=== PATIENT | male | born 1995 | race African-American/Black ===

== ENCOUNTER 2018-11-26 07:16 | Emergency (ER) | payer OTHER ==
[2018-11-26 07:51] LABS: Absolute Lymphocytes (CBC) 1.9 K/uL (0.7-4.9); Absolute Monocytes 0.5 K/uL (0.1-1.3); Absolute Neutrophil 1.6 K/uL (1.8-8.0); Basophils % 0.4 % (0-1.3); Eosinophils % 2.2 % (0-4.4); Hematocrit 49.8 % (39.6-49.0); Lymphocytes % 47.2 % (15.3-44.8); Monocytes % 12.2 % (3.3-12.3); RBC Red Blood Cell Count 5.48 M/uL (4.33-5.43)
[2018-11-26 08:03] LABS: BUN Blood Urea Nitrogen 18 mg/dL (7-18); Bicarbonate 30 mmol/L (21-32); CKMB Creatine Kinase MB < 1.0 ng/mL (0.3-3.6); Creatine Phosphokinase 96 U/L (39-308); Glucose Level 78 mg/dL (74-106); Potassium 3.9 mmol/L (3.5-5.1); Sodium Level 140 mmol/L (136-145); Troponin (Emerg Dept Use Only) < 0.02 ng/mL (0.0-0.045)
--- NOTE | 2018-11-26 08:11 | RAD REPORT ---
EXAM DESCRIPTION: CT - [id number] - 11/26/2018 7:45 am CLINICAL HISTORY: Trauma, head and neck injury. syncope COMPARISON: No comparisons TECHNIQUE: Axial 5 mm thick images of the head were obtained. Axial 2 mm thick images of the cervical spine were obtained with sagittal and coronal reconstruction images generated and reviewed. All CT scans are performed using dose optimization technique as appropriate and may include automated exposure control or mA/KV adjustment according to patient size. FINDINGS: CT HEAD WITHOUT CONTRAST: No acute hemorrhage, hydrocephalus or extra-axial collection is identified.No areas of brain edema or midline shift. The paranasal sinuses and mastoids are clear.The calvarium is intact. CT CERVICAL SPINE WITHOUT CONTRAST: No fracture or subluxation.No prevertebral soft tissues swelling is identified. IMPRESSION: No acute intracranial or cervical spine findings.
[2018-11-26] MEDS ORDERED: NA CHLORIDE 0.9% 1,000 ML ONE (08:19)
--- NOTE | 2018-11-26 08:39 | ER ---
Nurse's Notes [facility] Name: Ryan George Age: 22 yrs Sex: Male : 1995 Arrival Date: 11/26/2018 Time: 07:18 Bed 20 Private MD: Diagnosis: Syncope and collapse Presentation: 11/26 07:12 Presenting complaint: EMS states: pt standing at work, then had a syncopal episode from tw2 standing position, on the monitor his HR dropped down to the 40's, we noted abnormalities in St, no med hx, no medication, blood sugar was 85. Transition of care: patient was not received from another setting of care. Onset of symptoms was November 26, 2018. Risk Assessment: Do you want to hurt yourself or someone else? Patient reports no desire to harm self or others. Initial Sepsis Screen: Does the patient meet any 2 criteria? No. Patient's initial sepsis screen is negative. Does the patient have a suspected source of infection? No. Patient's initial sepsis screen is negative. Care prior to arrival: IV initiated. 18 GA, in the right antecubital area, Glucose check: 85. 07:12 Method Of Arrival: EMS: [facility] tw2 07:12 Acuity: AMOS 3 tw2 Historical: - Allergies: 07:23 No Known Allergies; tw2 - Home Meds: 07:23 None [Active]; tw2 - PMHx: 07:23 None; tw2 - PSHx: 07:23 None; tw2 - Immunization history:: Adult Immunizations. - Social history:: Smoking status: . - Ebola Screening: : Patient denies exposure to infectious person Patient denies travel to an Ebola-affected area in the 21 days before illness onset. Screenin:56 Abuse screen: Denies threats or abuse. Nutritional screening: No deficits noted. tw2 Tuberculosis screening: No symptoms or risk factors identified. Fall Risk None identified. Assessment: 07:55 General: Appears in no apparent distress. slender, Behavior is calm, cooperative, tw2 appropriate for age. Pain: Denies pain. Neuro: Level of Consciousness is awake, alert, obeys commands, Oriented to person, place, time, situation. Cardiovascular: Heart tones S1 S2 Patient's skin is warm and dry. Respiratory: Airway is patent Respiratory effort is even, unlabored, Respiratory pattern is regular, symmetrical, Breath sounds are clear bilaterally. GI: No signs and/or symptoms were reported involving the gastrointestinal system. Abdomen is flat, Bowel sounds present X 4 quads. : No signs and/or symptoms were reported regarding the genitourinary system. EENT: No signs and/or symptoms were reported regarding the EENT system. Derm: No signs and/or symptoms reported regarding the dermatologic system. Musculoskeletal: Circulation, motion, and sensation intact. Capillary refill < 3 seconds, Range of motion:. 07:55 Neuro: Denies blurred vision dizziness, headache photophobia. tw2 08:06 Reassessment: Patient appears in no apparent distress at this time. No changes from tw2 previously documented assessment. Patient and/or family updated on plan of care and expected duration. Pain level reassessed. Patient is alert, oriented x 3, equal unlabored respirations, skin warm/dry/pink. 09:09 Reassessment: Patient appears in no apparent distress at this time. No changes from tw2 previously documented assessment. Patient and/or family updated on plan of care and expected duration. Pain level reassessed. Patient is alert, oriented x 3, equal unlabored respirations, skin warm/dry/pink. Vital Signs: 07:22 BP 115 / 82; Pulse 76; Resp 13; Temp 97.9(O); Pulse Ox 100% on R/A; Weight 65.77 kg; tw2 Height 6 ft. 1 in. (185.42 cm); Pain 0/10; 07:25 BP 112 / 72 Supine; Pulse 77; tw2 07:25 BP 114 / 92 Sitting; Pulse 67; tw2 07:25 BP 101 / 71 Standing; Pulse 76; tw2 08:05 BP 137 / 87; Pulse 70; Resp 17; Pulse Ox 96% on R/A; tw2 09:08 BP 116 / 79; Pulse 72; Resp 17; Pulse Ox 99% on R/A; tw2 07:22 Body Mass Index 19.13 (65.77 kg, 185.42 cm) tw2 ED Course: 07:15 Bed in low position. Call light in reach. lunchroom monitor on. Pulse ox on. NIBP on. tw2 07:18 Patient arrived in ED. kb 07:18 Teri Garrett FNP-C [facility]. kb 07:18 German Cage MD is Attending Physician. kb 07:20 Preeti Escalera, RN is Primary Nurse. tw2 07:22 Triage completed. tw2 07:23 Arm band placed on. tw2 07:30 Inserted saline lock: 20 gauge in left antecubital area, using aseptic technique. Blood tw2 collected. 07:44 CT completed. Patient tolerated procedure well. Patient moved to CT via wheelchair. Patient moved back from CT. 07:45 CT Head C Spine In Process Unspecified. EDMS 08:39 Awaiting: completion of IV fluids PRIOR to discharge. tw2 08:43 EKG done, by furniture repair technician. reviewed by Teri OBRIEN. at1 09:09 No provider procedures requiring assistance completed. IV discontinued, intact, tw2 bleeding controlled, No redness/swelling at site. Pressure dressing applied. Administered Medications: 08:11 Drug: NS 0.9% 1000 ml Route: IV; Rate: 1000 ml; Site: left antecubital; tw2 09:08 Follow up: Response: No adverse reaction; IV Status: Completed infusion; IV Intake: tw2 1000ml Intake: 09:08 IV: 1000ml; Total: 1000ml. tw2 Outcome: 08:39 Discharge ordered by MD. kb 09:09 Discharged to home ambulatory, with family. tw2 09:09 Condition: stable 09:09 Discharge instructions given to patient, family, Instructed on discharge instructions, follow up and referral plans. Demonstrated understanding of instructions, follow-up care. 09:09 Patient left the ED. tw2 Signatures: Dispatcher [employer] EDNE Teri Garrett FNP-C FNP-Ckb Jones, Susan sj Gonzales, Amanda, sliver machine operator EKG Tat1 Preeti Escalera, RN RN tw2
--- NOTE | 2018-11-26 08:40 | EDPHYS ---
Physician Documentation [facility] Name: Ryan George Age: 22 yrs Sex: Male : 1995 Arrival Date: 11/26/2018 Time: 07:18 Bed 20 Private MD: ED Physician German Cage HPI: 11/26 08:37 This 22 yrs old Black Male presents to ER via EMS with complaints of Syncope. kb 08:37 The patient has experienced syncope, collapsed. Onset: The symptoms/episode kb began/occurred just prior to arrival. Duration: This was a single episode, that lasted an unknown period of time, short amount of time. Context: the episode(s) was witnessed, by co-worker(s), occurred at work, occurred while the patient was standing, Just prior to the episode the patient experienced no apparent symptoms. Associated injury: Neck: pain. Associated signs and symptoms: The patient has no apparent associated signs or symptoms. Current symptoms: Currently, the patient is not experiencing any symptoms, the patient feels back to baseline, no decreased level of consciousness, no confusion, no dysphasia, no headache, no paralysis, no visual changes. The patient has not experienced similar symptoms in the past. The patient has not recently seen a physician. Pt reports he was standing in a room during a meeting and passed out. Denies any symptoms before or after. States he is not sure how long he was out, but the EMT was not on scene when he woke up. EMS report pt was A\T\O when they arrived. Historical: - Allergies: 07:23 No Known Allergies; tw2 - Home Meds: 07:23 None [Active]; tw2 - PMHx: 07:23 None; tw2 - PSHx: 07:23 None; tw2 - Immunization history:: Adult Immunizations. - Social history:: Smoking status: . - Ebola Screening: : Patient denies exposure to infectious person Patient denies travel to an Ebola-affected area in the 21 days before illness onset. ROS: 08:36 Constitutional: Negative for fever, chills, and weight loss, ENT: Negative for injury, kb pain, and discharge, Neck: Negative for injury, pain, and swelling, Cardiovascular: Negative for chest pain, palpitations, and edema, Respiratory: Negative for shortness of breath, cough, wheezing, and pleuritic chest pain, Abdomen/GI: Negative for abdominal pain, nausea, vomiting, diarrhea, and constipation, Back: Negative for injury and pain, : Negative for injury, bleeding, discharge, and swelling, MS/Extremity: Negative for injury and deformity, Skin: Negative for injury, rash, and discoloration. 08:36 Neuro: Positive for syncope, Negative for altered mental status, dizziness, gait disturbance, headache, hearing loss, loss of consciousness, numbness, seizure activity, speech changes, near syncope, tingling, tinnitus, tremor, visual changes, weakness. Exam: 08:36 Constitutional: This is a well developed, well nourished patient who is awake, alert, kb and in no acute distress. Head/Face: Normocephalic, atraumatic. ENT: Nares patent. No nasal discharge, no septal abnormalities noted. Tympanic membranes are normal and external auditory canals are clear. Oropharynx with no redness, swelling, or masses, exudates, or evidence of obstruction, uvula midline. Mucous membranes moist. Neck: Trachea midline, no thyromegaly or masses palpated, and no cervical lymphadenopathy. Supple, full range of motion without nuchal rigidity, or vertebral point tenderness. No Meningismus. Chest/axilla: Normal chest wall appearance and motion. Nontender with no deformity. No lesions are appreciated. Cardiovascular: Regular rate and rhythm with a normal S1 and S2. No gallops, murmurs, or rubs. Normal PMI, no JVD. No pulse deficits. Respiratory: Lungs have equal breath sounds bilaterally, clear to auscultation and percussion. No rales, rhonchi or wheezes noted. No increased work of breathing, no retractions or nasal flaring. Abdomen/GI: Soft, non-tender, with normal bowel sounds. No distension or tympany. No guarding or rebound. No evidence of tenderness throughout. Skin: Warm, dry with normal turgor. Normal color with no rashes, no lesions, and no evidence of cellulitis. MS/ Extremity: Pulses equal, no cyanosis. Neurovascular intact. Full, normal range of motion. Neuro: Awake and alert, GCS 15, oriented to person, place, time, and situation. Cranial nerves II-XII grossly intact. Motor strength 5/5 in all extremities. Sensory grossly intact. Cerebellar exam normal. Normal gait. Vital Signs: 07:22 BP 115 / 82; Pulse 76; Resp 13; Temp 97.9(O); Pulse Ox 100% on R/A; Weight 65.77 kg; tw2 Height 6 ft. 1 in. (185.42 cm); Pain 0/10; 07:25 BP 112 / 72 Supine; Pulse 77; tw2 07:25 BP 114 / 92 Sitting; Pulse 67; tw2 07:25 BP 101 / 71 Standing; Pulse 76; tw2 08:05 BP 137 / 87; Pulse 70; Resp 17; Pulse Ox 96% on R/A; tw2 09:08 BP 116 / 79; Pulse 72; Resp 17; Pulse Ox 99% on R/A; tw2 07:22 Body Mass Index 19.13 (65.77 kg, 185.42 cm) tw2 MDM: 07:18 Patient medically screened. kb 08:36 Data reviewed: vital signs, nurses notes. Data interpreted: Pulse oximetry: on room air kb is 96 %. Interpretation: normal. Counseling: I had a detailed discussion with the patient and/or guardian regarding: the historical points, exam findings, and any diagnostic results supporting the discharge/admit diagnosis, lab results, radiology results, the need for outpatient follow up, a family practitioner, to return to the emergency department if symptoms worsen or persist or if there are any questions or concerns that arise at home. 11/26 07:19 Order name: Basic Metabolic Panel; Complete Time: 08:07 kb 11/26 07:19 Order name: CBC with Diff kb 11/26 07:19 Order name: Ckmb; Complete Time: 08:07 kb 11/26 07:19 Order name: CPK; Complete Time: 08:07 kb 11/26 07:19 Order name: Troponin (emerg Dept Use Only); Complete Time: 08:07 kb 11/26 07:53 Order name: Manual Differential EDMS 11/26 07:19 Order name: CT Head C Spine; Complete Time: 08:14 kb 11/26 07:19 Order name: EKG; Complete Time: 07:20 kb 11/26 07:19 Order name: Cardiac monitoring; Complete Time: 07:23 kb 11/26 07:19 Order name: EKG - Nurse/Tech; Complete Time: 07:23 kb 11/26 07:19 Order name: IV Saline Lock; Complete Time: 07:23 kb 11/26 07:19 Order name: Labs collected and sent; Complete Time: 07:37 kb 11/26 07:19 Order name: NPO; Complete Time: 07:23 kb 11/26 07:19 Order name: O2 Per Protocol; Complete Time: 07:23 kb 11/26 07:19 Order name: O2 Sat Monitoring; Complete Time: 07:23 kb 11/26 07:20 Order name: Orthostatics; Complete Time: 07:37 kb Administered Medications: 08:11 Drug: NS 0.9% 1000 ml Route: IV; Rate: 1000 ml; Site: left antecubital; tw2 09:08 Follow up: Response: No adverse reaction; IV Status: Completed infusion; IV Intake: tw2 1000ml Disposition: 15:19 Co-signature as Attending Physician, German Cage MD I agree with the assessment and katie plan of care. Disposition: 11/26/18 08:39 Discharged to Home. Impression: Syncope and collapse. - Condition is Stable. - Discharge Instructions: Syncope, [id number]. - Medication Reconciliation Form, Thank You Letter, Antibiotic Education, Prescription Opioid Use, Work release form form. - Follow up: Emergency Department; When: As needed; Reason: Worsening of condition. Follow up: Private Physician; When: 2 - 3 days; Reason: Recheck today's complaints, Continuance of care, Re-evaluation by your physician. Signatures: Dispatcher [employer] EDTeri Lawrence, German León MD MD cha Wise, Tara, RN RN tw2 Corrections: (The following items were deleted from the chart) 08:37 08:36 Constitutional: This is a well developed, well nourished patient who is awake, kb alert, and in no acute distress. Head/Face: Normocephalic, atraumatic. Chest/axilla: Normal chest wall appearance and motion. Nontender with no deformity. No lesions are appreciated. Cardiovascular: Regular rate and rhythm with a normal S1 and S2. No gallops, murmurs, or rubs. Normal PMI, no JVD. No pulse deficits. Respiratory: Lungs have equal breath sounds bilaterally, clear to auscultation and percussion. No rales, rhonchi or wheezes noted. No increased work of breathing, no retractions or nasal flaring. Abdomen/GI: Soft, non-tender, with normal bowel sounds. No distension or tympany. No guarding or rebound. No evidence of tenderness throughout. Skin: Warm, dry with normal turgor. Normal color with no rashes, no lesions, and no evidence of cellulitis. MS/ Extremity: Pulses equal, no cyanosis. Neurovascular intact. Full, normal range of motion. Neuro: Awake and alert, GCS 15, oriented to person, place, time, and situation. Cranial nerves II-XII grossly intact. Motor strength 5/5 in all extremities. Sensory grossly intact. Cerebellar exam normal. Normal gait. kb 09:09 08:39 11/26/2018 08:39 Discharged to Home. Impression: Syncope and collapse. Condition tw2 is Stable. Forms are Work release form, Medication Reconciliation Form, Thank You Letter, Antibiotic Education, Prescription Opioid Use. Follow up: Emergency Department; When: As needed; Reason: Worsening of condition. Follow up: Private Physician; When: 2 - 3 days; Reason: Recheck today's complaints, Continuance of care, Re-evaluation by your physician. kb
[2018-11-26 10:03] LABS: Blood Morphology Comment NOT SEEN (NOT SEEN); Platelet Estimate ADEQ
--- NOTE | 2018-11-26 20:52 | EKG ---
Test Date: 2018-11-26 Test Time: 08:25:49 Drug Enforcement [employer] Agent: SHAVONNE MEASUREMENT RESULTS: Intervals: Rate: 53 NV: 142 QRSD: 90 QT: 410 QTc: 384 [place]: P: 74 NV: 142 QRS: 80 T: 77 INTERPRETIVE STATEMENTS: Sinus bradycardia with sinus arrhythmia Early repolarization Otherwise normal ECG Compared to ECG 06/09/2011 10:19:50 No significant changes Electronically Signed On 11-26-18 20:48:10 [employer] by Reese Oakley
== END 2018-11-26 09:09 | disposition home or self-care (01) ==
LOC: ER 07:16
DX: R55 Syncope and collapse (principal)
CPT/HCPCS: 36415; 70450; 72125; 80048; 82550; 82553; 84484; 85025; 93005; 96360; 99285; J7030